=== PATIENT | male | born 2000 | race Hispanic/Latino ===

== ENCOUNTER 2025-02-16 19:04 | Emergency (ER) | payer SELFPAY ==
[2025-02-16] MEDS ORDERED: Boostrix 0.5 ML (Tdap) VIAL (>/=7 yrs of age) ONE (22:25)
[2025-02-16] MEDS ORDERED: Bacitracin 1 PK ONE (22:36)
[2025-02-16] MEDS ORDERED: Acetaminophen 500 MG TAB ONE (22:45)
== END 2025-02-17 00:35 | disposition home or self-care (01) ==
LOC: CSHERS 19:04
DX: S61.412A Laceration without foreign body of left hand, initial encounter (principal); Z23 Encounter for immunization; Z55.6 Problems related to health literacy; Z75.8 Other problems related to medical facilities and other health care; W26.8XXA Contact with other sharp object(s), not elsewhere classified, initial encounter
CPT/HCPCS: 90471; 90715